=== PATIENT | female | born 1940 | race Caucasian/White ===

== ENCOUNTER → 2016-09-29 | Outpatient (CLI) | payer MEDICARE, BC ==
--- NOTE | 2016-09-30 11:19 | MM ---
Reason for exam: screening (asymptomatic). Last mammogram was performed 1 year ago. History: Patient is postmenopausal. Benign right mammotome panel of the right breast, April 02, 2009. Took estrogen for 30 years. Physical Findings: A clinical breast exam by your physician is recommended on an annual basis and results should be correlated with mammographic findings. MG 3D Screening Mammo W/Cad Bilateral CC and MLO view(s) were taken. Prior study comparison: September 24, 2015, bilateral MG screening mammo w CAD. June 17, 2014, bilateral MG screening mammo w CAD. There are scattered fibroglandular densities. No significant changes when compared with prior studies. ASSESSMENT: Benign, BI-RAD 2 RECOMMENDATION: Routine screening mammogram of both breasts in 1 year.
== END | disposition home or self-care (01) ==
LOC: RADMAMWWP 11:18
PROVIDERS: ATTEND Family Medicine
DX: Z12.31 Encounter for screening mammogram for malignant neoplasm of breast (principal)
CPT/HCPCS: 77063; G0202

== ENCOUNTER → 2017-11-25 | Outpatient (CLI) | payer MEDICARE, BC ==
--- NOTE | 2017-11-28 09:24 | MM ---
Reason for exam: screening (asymptomatic). Last mammogram was performed 1 year and 2 months ago. History: Patient is postmenopausal. Benign right mammotome panel of the right breast, April 02, 2009. Took estrogen for 30 years. Physical Findings: A clinical breast exam by your physician is recommended on an annual basis and results should be correlated with mammographic findings. MG 3D Screening Mammo W/Cad Bilateral CC and MLO view(s) were taken. Prior study comparison: September 29, 2016, bilateral MG 3d screening mammo w/cad. September 24, 2015, bilateral MG screening mammo w CAD. There are scattered fibroglandular densities. Finding: There are typically benign round, linear, diffuse and grouped calcifications in both breasts. Previous mammotome biopsy in the right breast. There is no discrete abnormality. ASSESSMENT: Benign, BI-RAD 2 RECOMMENDATION: Routine screening mammogram of both breasts in 1 year.
== END | disposition home or self-care (01) ==
LOC: RADMAMWWP 12:29
PROVIDERS: ATTEND Family Medicine
DX: Z12.31 Encounter for screening mammogram for malignant neoplasm of breast (principal)
CPT/HCPCS: 77063; 77067

== ENCOUNTER 2019-01-18 08:33 | Day surgery (SDC) | payer MEDICARE, BC ==
[2019-01-16 11:04] VITALS: BMI 29.2
--- NOTE | 2019-01-18 07:26 | P.GSHP ---
History of Present Illness H&P Date: 01/18/19 CHIEF COMPLAINT: Colon screen HISTORY OF PRESENT ILLNESS: The patient is a 78-year-old female who presents for colon screen. Lower endoscopy was offered for further evaluation and management. PAST MEDICAL HISTORY: Please see list. PAST SURGICAL HISTORY: Please see list. MEDICATIONS: Please see list. ALLERGIES: Please see list. SOCIAL HISTORY: No illicit drug use FAMILY HISTORY: No reports of Crohn disease or ulcerative colitis. REVIEW OF ORGAN SYSTEMS: CONSTITUTIONAL: No reports of fevers or chills. PHYSICAL EXAM: VITAL SIGNS: Stable GENERAL: Well-developed pleasant in no acute distress. HEENT: No scleral icterus. Extraocular movements grossly intact. Moist buccal mucosa. NECK: Supple without lymphadenopathy. CHEST: Unlabored respirations. Equal bilateral excursions. CARDIOVASCULAR: Regular rate and rhythm. Distal 2+ pulses. ABDOMEN: Soft, nontender, nondistended. MUSCULOSKELETAL: No clubbing, cyanosis, or edema. ASSESSMENT: 1. Colon screen. PLAN: 1. Recommend proceeding with a lower endoscopy Past Medical History Past Medical History: GERD/Reflux, Hypertension, Osteoarthritis (OA), Thyroid Disorder Additional Past Medical History / Comment(s): diverticulitis, IBS, hx ulcer yrs ago, small hiatal hernia, History of Any Multi-Drug Resistant Organisms: None Reported Past Surgical History: Cholecystectomy, Hysterectomy, Joint Replacement, Orthopedic Surgery Additional Past Surgical History / Comment(s): RT KNEE ARTHROSCOPY, PARTIAL THYROIDECTOMY, PAROTID GLAND BENIGN TUMOR REMOVED, rt knee replacement, steriod injections rt foot Past Anesthesia/Blood Transfusion Reactions: Previous Problems w/ Anesthesia, Motion Sickness, Postoperative Nausea & Vomiting (PONV) Additional Past Anesthesia/Blood Transfusion Reaction / Comment(s): HAS TWICE IN PAST WENT INTO AFIB POST OP(after knee arthroscopy and thyroid surgery) Smoking Status: Never smoker - Past Family History Mother Family Medical History: No Reported History Medications and Allergies Home Medications Medication Instructions Recorded Confirmed Type Aspirin [Adult Low Dose Aspirin EC] 81 mg PO DAILY 03/30/16 01/16/19 History Hydrochlorothiazide [Hydrodiuril] 25 mg PO QAM 03/30/16 01/16/19 History ALPRAZolam [Xanax] 0.125 mg PO HS PRN 01/16/19 01/16/19 History Diltiazem Cd [Cardizem Cd] 180 mg PO DAILY 01/16/19 01/16/19 History Levothyroxine Sodium [Synthroid] 75 mcg PO DAILY 01/16/19 01/16/19 History Metoprolol Succinate (ER) [Toprol 25 mg PO DAILY 01/16/19 01/16/19 History Xl] Allergies Allergy/AdvReac Type Severity Reaction Status Date / Time acetaminophen [From Vicodin] Allergy joint pain Verified 01/16/19 10:53 cephalexin monohydrate Allergy low b/p, Verified 01/16/19 10:53 [From Keflex] passed out hydrocodone bitartrate Allergy joint pain Verified 01/16/19 10:53 [From Vicodin] metformin Allergy Abdominal Verified 01/16/19 10:53 Pain
[~2019-01-18 08:33] MED LIST: LACTATED RINGERS 1,000 ML IV SCH; LIDOCAINE 1% 20 ML VIAL (10MG/ML) FOR IV START INTRADERMA PRN
[2019-01-18 08:56] VITALS: RESP 16; TEMP 97
[2019-01-18] MEDS ORDERED: PROPOFOL 10 MG/ML 20 ML VIAL IV ONE (09:40)
--- NOTE | 2019-01-18 10:00 | P.PCN ---
Date of Procedure: 01/18/19 Description of Procedure: PREOPERATIVE DIAGNOSIS: Change in bowel habits Diverticulosis POSTOPERATIVE DIAGNOSIS: Change in bowel habits Severe sigmoid diverticulosis and external hemorrhoids, grade 3 Internal hemorrhoids, grade 3 OPERATION: Colonoscopy to the ileocecal valve and appendiceal orifice. SURGEON: Cyndy Calzada MD. ANESTHESIA: MAC. INDICATIONS: The patient is a 78-year-old female who presents with change in bowel habits including right lower quadrant abdominal pain. Benefits and risks were described and informed consent was obtained. DESCRIPTION OF PROCEDURE: The patient had undergone Suprep. She had been brought into the operating room and laid in the left lateral decubitus position. After adequate intravenous sedation, the rectum was examined with 2% lidocaine jelly. External hemorrhoids were encountered. The rectal tone was within normal limits. No lesions were palpated in the rectal vault. An Olympus colonoscope was advanced until the ileocecal valve and appendiceal orifice were clearly viewed. The prep was excellent with clear visualization of the mucosal folds. The scope was removed with visualization of each mucosal fold. severe sigmoid diverticulosis was encountered. No colonic polyps were found. No evidence of focal colitis was found. Retroflexion of the scope demonstrated grade 3 internal hemorrhoids without active bleeding or inflammation. The colon was desufflated. The patient had tolerated the procedure well. Withdrawal time was over 6 minutes. FINDINGS: Aronchick preparation quality scale 1 (1-5) External hemorrhoids, grade 3 External prolapsed hemorrhoids, grade 3 No arteriovenous malformations. No adenomatous polyps. No focal colitis. Severe large amount sigmoid diverticulosis from 40 to 10 cm from the anal verge RECOMMENDATIONS: Lower endoscopy as needed Plan - Discharge Summary Discharge Rx Participant: No New Discharge Prescriptions: No Action Hydrochlorothiazide [Hydrodiuril] 25 mg PO QAM Aspirin [Adult Low Dose Aspirin EC] 81 mg PO DAILY Levothyroxine Sodium [Synthroid] 75 mcg PO DAILY Diltiazem Cd [Cardizem Cd] 180 mg PO DAILY Metoprolol Succinate (ER) [Toprol Xl] 25 mg PO DAILY ALPRAZolam [Xanax] 0.125 mg PO HS PRN PRN Reason: sleep Discharge Medication List Aspirin [Adult Low Dose Aspirin EC] 81 mg PO DAILY 03/30/16 [History] Hydrochlorothiazide [Hydrodiuril] 25 mg PO QAM 03/30/16 [History] ALPRAZolam [Xanax] 0.125 mg PO HS PRN 01/16/19 [History] Diltiazem Cd [Cardizem Cd] 180 mg PO DAILY 01/16/19 [History] Levothyroxine Sodium [Synthroid] 75 mcg PO DAILY 01/16/19 [History] Metoprolol Succinate (ER) [Toprol Xl] 25 mg PO DAILY 01/16/19 [History] Follow up Appointment(s)/Referral(s): Cyndy Calzada MD [STAFF PHYSICIAN] - 01/30/19 Patient Instructions/Handouts: Diverticulosis Diet (GEN), Diverticulosis (DC) Activity/Diet/Wound Care/Special Instructions: Repeat colonoscopy as needed Discharge Disposition: HOME SELF-CARE
[2019-01-18 10:16] VITALS: BP 143/82
[2019-01-18 10:25] VITALS: PULSE 62
== END 2019-01-18 10:57 | disposition home or self-care (01) ==
LOC: ORWHC2ENDO 08:33
PROVIDERS: ATTEND Surgery Plastic and Reconstructive Surgery
DX: K57.30 Diverticulosis of large intestine without perforation or abscess without bleeding (principal); K64.2 Third degree hemorrhoids; K21.9 Gastro-esophageal reflux disease without esophagitis; I10 Essential (primary) hypertension; M19.90 Unspecified osteoarthritis, unspecified site; E07.9 Disorder of thyroid, unspecified; I48.91 Unspecified atrial fibrillation; K58.9 Irritable bowel syndrome, unspecified; K44.9 Diaphragmatic hernia without obstruction or gangrene; Z90.49 Acquired absence of other specified parts of digestive tract; Z90.710 Acquired absence of both cervix and uterus; Z96.651 Presence of right artificial knee joint; Z98.890 Other specified postprocedural states; Z79.82 Long term (current) use of aspirin; Z79.890 Hormone replacement therapy; Z79.899 Other long term (current) drug therapy; Z88.1 Allergy status to other antibiotic agents; Z88.5 Allergy status to narcotic agent; Z88.8 Allergy status to other drugs, medicaments and biological substances
CPT/HCPCS: 45378; J2704

== ENCOUNTER → 2019-02-20 | Outpatient (CLI) | payer MEDICARE, BC ==
--- NOTE | 2019-02-22 12:05 | MM ---
Reason for exam: screening (asymptomatic). Last mammogram was performed 1 year and 3 months ago. History: Patient is postmenopausal. Benign right mammotome panel of the right breast, April 02, 2009. Took estrogen for 30 years. Physical Findings: A clinical breast exam by your physician is recommended on an annual basis and results should be correlated with mammographic findings. MG 3D Screening Mammo W/Cad Bilateral CC and MLO view(s) were taken. Prior study comparison: November 25, 2017, bilateral MG 3d screening mammo w/cad. September 29, 2016, bilateral MG 3d screening mammo w/cad. There are scattered fibroglandular densities. Previous mammotome biopsy in the right breast. Stable secretory calcifications anterior left breast. No significant changes when compared with prior studies. ASSESSMENT: Negative, BI-RAD 1 RECOMMENDATION: Routine screening mammogram of both breasts in 1 year.
== END | disposition home or self-care (01) ==
LOC: RADMAMWWP 10:54
PROVIDERS: ATTEND Family Medicine
DX: Z12.31 Encounter for screening mammogram for malignant neoplasm of breast (principal)
CPT/HCPCS: 77063; 77067

== ENCOUNTER 2019-03-29 06:28 | Day surgery (SDC) | payer MEDICARE, BC ==
[2019-03-21 11:51] VITALS: BMI 29.2
[~2019-03-29 06:28] MED LIST changes: +DEXAMETHASONE SOD PHOSPHATE 10 MG/ML 1 ML VIAL IV ONE; +fentaNYL (PF) 50 MCG/ML 2 ML AMP IV PRN
[2019-03-29] MEDS: ONDANSETRON 4 MG/2 ML VIAL IVP ONE ×2 (07:13→10:33)
[2019-03-29 07:15] LABS: Glucose,Whole Blood 144 mg/dL (75-99)
[2019-03-29] MEDS ORDERED: HEPARIN SODIUM,PORCINE 5,000 UNIT/ML 1 ML VIAL SQ ONE (07:30)
--- NOTE | 2019-03-29 07:30 | P.GSHP ---
History of Present Illness H&P Date: 03/29/19 CHIEF COMPLAINT: History of intra-abdominal adhesions HISTORY OF PRESENT ILLNESS: The patient is a 78-year-old female who presents with history of intra-abdominal adhesions from multiple prior surgeries including increasing abdominal pain. She now presents for diagnostic laparoscopy including lysis of adhesions. PAST MEDICAL HISTORY: Please see list. PAST SURGICAL HISTORY: Please see list. MEDICATIONS: Please see list. ALLERGIES: Please see list. SOCIAL HISTORY: No illicit drug use FAMILY HISTORY: No reports of Crohn disease or ulcerative colitis. REVIEW OF ORGAN SYSTEMS: CONSTITUTIONAL: No reports of fevers or chills. GI: Denies any blood in stools or constipation. PHYSICAL EXAM: VITAL SIGNS: Stable GENERAL: Well-developed pleasant and in no acute distress. HEENT: No scleral icterus. Extraocular movements grossly intact. Moist buccal mucosa. NECK: Supple without lymphadenopathy. CHEST: Unlabored respirations. Equal bilateral excursions. CARDIOVASCULAR: Regular rate and rhythm. Distal 2+ pulses. ABDOMEN: Soft, diffuse abdominal tenderness. No peritonitis. MUSCULOSKELETAL: No clubbing, cyanosis, or edema. ASSESSMENT: 1. Diffuse abdominal pain. 2. History of multiple abdominal surgeries. 3. Intra-abdominal adhesions. PLAN: 1. Robotic lysis of adhesions were described in detail including risk of injury to the intestine, need for further surgery, and open technique. 2. DVT prophylaxis. 3. Antibiotic prophylaxis. Past Medical History Past Medical History: Atrial Fibrillation, GERD/Reflux, Hypertension, Osteoarthritis (OA), Thyroid Disorder Additional Past Medical History / Comment(s): Hx diverticulitis, IBS, hx ulcer yrs ago, small hiatal hernia, constipation , pre-diabetic -stopped metformin (caused abd pain) and watching diet . History of Any Multi-Drug Resistant Organisms: None Reported Past Surgical History: Cholecystectomy, Hysterectomy, Joint Replacement, Orthopedic Surgery Additional Past Surgical History / Comment(s): RT KNEE ARTHROSCOPY, PARTIAL THYROIDECTOMY, PAROTID GLAND BENIGN TUMOR REMOVED, TOTAL RIGHT KNEE,, steriod injections rt foot, STATES 3 SURGERIES FOR ENDOMETRIOSIS AND LAST ONE SHE HAD 8 HR SURGERY WITH HYSTERECTOMY. Past Anesthesia/Blood Transfusion Reactions: Previous Problems w/ Anesthesia, Motion Sickness, Postoperative Nausea & Vomiting (PONV) Additional Past Anesthesia/Blood Transfusion Reaction / Comment(s): HAS TWICE IN PAST WENT INTO AFIB POST OP(after knee arthroscopy and thyroid surgery) Past Psychological History: No Psychological Hx Reported Smoking Status: Never smoker Past Alcohol Use History: None Reported Past Drug Use History: None Reported - Past Family History Mother Family Medical History: No Reported History Medications and Allergies Home Medications Medication Instructions Recorded Confirmed Type Hydrochlorothiazide [Hydrodiuril] 25 mg PO QAM 03/30/16 03/22/19 History ALPRAZolam [Xanax] 0.125 mg PO DAILY PRN 01/16/19 03/22/19 History Diltiazem Cd [Cardizem Cd] 180 mg PO DAILY 01/16/19 03/22/19 History Levothyroxine Sodium [Synthroid] 75 mcg PO DAILY 01/16/19 03/22/19 History Metoprolol Succinate (ER) [Toprol 25 mg PO DAILY 01/16/19 03/22/19 History Xl] Apixaban [Eliquis] 2.5 mg PO BID 03/22/19 03/22/19 History Multivitamins, Thera [Multivitamin 1 tab PO DAILY 03/22/19 03/22/19 History (formulary)] [place]-3 Fatty Acids/Fish Oil [Fish 1 each PO DAILY 03/22/19 03/22/19 History Oil 1,000 mg Softgel] Allergies Allergy/AdvReac Type Severity Reaction Status Date / Time cephalexin monohydrate Allergy low b/p, Verified 03/21/19 11:39 [From Keflex] passed out, nausea hydrocodone bitartrate Allergy joint pain Verified 03/21/19 11:39 [From Vicodin] metformin Allergy Abdominal Verified 03/21/19 11:39 Pain Surgical - Exam Vital Signs Temp Pulse Resp BP Pulse Ox 97 F L 58 L 18 169/72 96 03/29/19 06:55 03/29/19 06:55 03/29/19 06:55 03/29/19 06:55 03/29/19 06:55 Results - Labs Abnormal Lab Results - Last 24 Hours (Table) 03/29/19 Range/Units 07:06 POC Glucose (mg/dL) 144 H (75-99) mg/dL
[2019-03-29] MEDS ORDERED: fentaNYL (PF) 50 MCG/ML 2 ML AMP ONE (07:50)
[2019-03-29] MEDS ORDERED: SUCCINYLCHOLINE CHLORIDE 100 MG/5 ML SYR IV ONE (07:50)
[2019-03-29] MEDS ORDERED: MIDAZOLAM 2 MG/2 ML VIAL ONE (07:50)
[2019-03-29] MEDS ORDERED: ROCURONIUM BROMIDE 10 MG/ML 10 ML VIAL IV ONE (07:50)
[2019-03-29] MEDS ORDERED: LIDOCAINE 1% INJ 10MG/ML (20 ML MDV) ONE (07:50)
[2019-03-29] MEDS ORDERED: GLYCOPYRROLATE 0.2 MG/ML 2 ML VIAL ONE (07:50)
[2019-03-29] MEDS ORDERED: PROPOFOL 10 MG/ML 20 ML VIAL IV ONE (07:50)
[2019-03-29] MEDS ORDERED: NEOSTIGMINE 1 MG/ML 10 ML VIAL ONE (07:50)
[2019-03-29] MEDS ORDERED: BUPIVACAIN-EPI 0.25%-1:200,000 30 ML VIAL SQ ONE (08:32)
--- NOTE | 2019-03-29 09:48 | P.OP ---
Date of Procedure: 03/29/19 Description of Procedure: SURGEON: RADHA SETHI MD PREOPERATIVE DIAGNOSES: 1. History of multiple abdominal surgeries 2. Peritoneal adhesions 3. Chronic atrial fibrillation 4. Gastroesophageal reflux disease 5. Chronic abdominal pain 6. Hypertensive heart disease 7. Hypothyroidism 8. Chronic constipation 9. History of endometriosis 10. History of diverticular disease of the colon 11. Chronic anticoagulant use POSTOPERATIVE DIAGNOSES: 1. History of multiple abdominal surgeries 2. Peritoneal adhesions 3. Chronic atrial fibrillation 4. Gastroesophageal reflux disease 5. Chronic abdominal pain 6. Hypertensive heart disease 7. Hypothyroidism 8. Chronic constipation 9. History of endometriosis 10. History of diverticular disease of the colon 11. Chronic anticoagulant use 12. Severe peritoneal adhesions greater omentum to the abdominal wall OPERATION: 1. Robotic-assisted da Marine Xi laparoscopic extensive lysis of adhesions, 1 hr COMPLICATIONS: None. Anesthesia: GETA, local Estimated Blood Loss (ml): 5 Pathology: none sent Condition: stable Disposition: same day OPERATIVE FINDINGS: 1. Severe peritoneal adhesions greater omentum to anterior abdominal wall involving pelvis as well as right upper quadrant and right lower quadrant. INDICATIONS: The patient is a 78-year-old female who presents with severe chronic abdominal pain in the lower abdomen including off the right upper and right lower quadrant. She has previous history of severe peritoneal adhesions. Surgical intervention was described. Informed consent was obtained. Robotic assisted laparoscopic approach was described. Benefits and risks of the procedure including but not limited to bleeding, infection, injury to the small bowel was described. Informed consent was obtained. DESCRIPTION OF PROCEDURE: Patient was brought to the operating room, placed in supine position. After general induction, the abdomen had been prepped and draped in standard sterile fashion. The robotic da Marine XI system was primed. After a timeout protocol was performed, the patient had been prepped and draped in standard sterile fashion. The robot was docked along the left lateral abdomen. A 5 mm 0 degrees laparoscopic trocar entry was performed along the left upper quadrant. The abdomen was insufflated to 15 mmHg pressure which was tolerated well. Diagnostic laparoscopy demonstrated severe intra-abdominal adhesions involving the pelvis including right upper and right lower quadrant as described by the patient. The small bowel was unremarkable without evidence of dilation or suggestion of obstruction. No injury to the bowel, viscera or mesentery was identified. Next, three 8 mm robotic ports were placed along the left lateral abdominal wall after exchanging the 5 mm trocar. Please note that the ports were placed at least 9 cm away from the target anatomy. Instruments were interchanged using only 3 ports for a grasper, vessel sealer, and scissors with cautery. Instruments were interchanged by the patent legal assistant including Bovie cautery scissors. I had sat at the console. Using vessel sealer, extensive lysis of adhesions of 45 minutes to 1 hour was performed to address greater omental adhesions to the right upper quadrant including right lower quadrant and left lower abdomen. The sigmoid colon was highly redundant and undisturbed. Small bowel was unremarkable. Carefully the adhesions were taken down without injury to the small bowel using vessel sealer. Hemostasis was excellent and abdomen was dry upon completion. Completion lysis of adhesions confirmed. The robot was undocked. All pneumoperitoneum and instruments were evacuated from the abdominal cavity. The incisions were reapproximated using 4-0 Monocryl in an interrupted subcuticular fashion. Please note along the trocar sites, local anesthetic was placed as a field block prior to insertion of all instruments. Liquid glue was applied to the skin. At the end of the procedure needle, sponge, and instrument count had been verified correct by the director medical surgical. The patient was transferred to postanesthesia care unit in stable condition. Intraoperative images including findings were described to the patients family. Plan - Discharge Summary Discharge Rx Participant: No New Discharge Prescriptions: No Action Hydrochlorothiazide [Hydrodiuril] 25 mg PO QAM Levothyroxine Sodium [Synthroid] 75 mcg PO DAILY Diltiazem Cd [Cardizem Cd] 180 mg PO DAILY Metoprolol Succinate (ER) [Toprol Xl] 25 mg PO DAILY ALPRAZolam [Xanax] 0.125 mg PO DAILY PRN PRN Reason: sleep Apixaban [Eliquis] 2.5 mg PO BID Multivitamins, Thera [Multivitamin (formulary)] 1 tab PO DAILY [place]-3 Fatty Acids/Fish Oil [Fish Oil 1,000 mg Softgel] 1 each PO DAILY Discharge Medication List Hydrochlorothiazide [Hydrodiuril] 25 mg PO QAM 03/30/16 [History] ALPRAZolam [Xanax] 0.125 mg PO DAILY PRN 01/16/19 [History] Diltiazem Cd [Cardizem Cd] 180 mg PO DAILY 01/16/19 [History] Levothyroxine Sodium [Synthroid] 75 mcg PO DAILY 01/16/19 [History] Metoprolol Succinate (ER) [Toprol Xl] 25 mg PO DAILY 01/16/19 [History] Apixaban [Eliquis] 2.5 mg PO BID 03/22/19 [History] Multivitamins, Thera [Multivitamin (formulary)] 1 tab PO DAILY 03/22/19 [History] [place]-3 Fatty Acids/Fish Oil [Fish Oil 1,000 mg Softgel] 1 each PO DAILY 03/22/19 [History]
[2019-03-29 10:00] VITALS: TEMP 97.1
[2019-03-29] MEDS ORDERED: TAMSULOSIN 0.4 MG CAP.ER.24H PO ONE (10:04)
[2019-03-29] MEDS ORDERED: PROMETHAZINE INJ 25 MG/ML 1 ML VIAL IVPB ONE (12:02)
[2019-03-29 13:03] VITALS: RESP 20
[2019-03-29] MEDS ORDERED: ACETAMINOPHEN TAB 500 MG TAB PO ONE (13:06)
[2019-03-29 13:29] VITALS: BP 116/67; PULSE 84
== END 2019-03-29 14:06 | disposition home or self-care (01) ==
LOC: OR 06:28
PROVIDERS: ATTEND Surgery Plastic and Reconstructive Surgery
DX: K66.0 Peritoneal adhesions (postprocedural) (postinfection) (principal); I48.2 Chronic atrial fibrillation; I11.9 Hypertensive heart disease without heart failure; E89.0 Postprocedural hypothyroidism; K57.90 Diverticulosis of intestine, part unspecified, without perforation or abscess without bleeding; Q43.9 Congenital malformation of intestine, unspecified; K58.1 Irritable bowel syndrome with constipation; K21.9 Gastro-esophageal reflux disease without esophagitis; G89.29 Other chronic pain; E78.5 Hyperlipidemia, unspecified; E11.9 Type 2 diabetes mellitus without complications; M19.90 Unspecified osteoarthritis, unspecified site; Z88.1 Allergy status to other antibiotic agents; Z88.5 Allergy status to narcotic agent; Z88.8 Allergy status to other drugs, medicaments and biological substances; Z79.82 Long term (current) use of aspirin; Z79.01 Long term (current) use of anticoagulants; Z79.890 Hormone replacement therapy; Z79.899 Other long term (current) drug therapy; Z90.710 Acquired absence of both cervix and uterus; Z90.49 Acquired absence of other specified parts of digestive tract; Z87.19 Personal history of other diseases of the digestive system; Z96.651 Presence of right artificial knee joint; Z98.890 Other specified postprocedural states
CPT/HCPCS: 44180; J2250; J1644; J1100; J2550; J2710; J0690; J2405; J2001; J3010; J0330; J2704